=== PATIENT | female | born 1965 | race Two or more races ===

== ENCOUNTER 2024-09-14 04:58 | Emergency (ER) | payer MEDICAID ==
[~2024-09-14] VITALS: Ht 152.4 cm; Wt 72.6 kg
[2024-09-14 06:43] VITALS: BP 174/88; PULSE 86; RESP 18; TEMP 98.3; O2SAT 96
[2024-09-14] MEDS ORDERED: HYDROcodone-ACET 7.5/325MG TAB PO ONE (06:45)
--- NOTE | 2024-09-14 06:48 | ED.PDOC ---
Back pain HPI HPI Comments This is a pleasant 59-year-old female with no pertinent MHx that presents with a chief complaint of atraumatic nonradiating lower back pain x5 days. Pain is located to the bilateral paraspinal lumbosacral region. Denies any prior onset leading to the pain. Admits she was doing some gardening work several days beforehand but nothing strenuous. States the pain is persistent throughout the day but worsens when lying on her left or right side. Take Excedrin with some improvement Denies history of chronic steroid use or history of osteoporosis Denies any history of cancer Denies fevers chills night sweats nausea vomiting unintentional weight loss Denies IV drug use history of HIV/TB Denies abdominal "tearing" pain Denies syncope Denies urinary incontinence or urinary changes Denies numbness tingling of the groin or inner thigh Denies previous back procedure or surgery Chief Complaint: Back Pain Time Seen by MD: 06:28 Primary Care Provider: DAWOOD Grace Notes: Nurses Notes, Medications, Allergies Allergies: Coded Allergies: Acetaminophen (Verified Allergy, Unknown, 01/16/15) Codeine (Verified Allergy, Unknown, 01/16/15) Home Meds Active Scripts Cyclobenzaprine Hcl (Cyclobenzaprine Hcl) 10 Mg Tab, 10 MG PO QHSP PRN for 10 Days, #10 TAB 0 Refills Prov:NADEGE MAK NP 09/14/24 Ibuprofen Micronized (Ibuprofen) 800 Mg Tab, 800 MG PO TIDWMEALS for 10 Days, #30 TAB 0 Refills Prov:NADEGE MAK NP 09/14/24 Methylprednisolone (Medrol Dosepak) 4 Mg Filiberto, 4 MG PO UD, #21 TAB 0 Refills UAD Prov:NADEGE MAK NP 09/14/24 Information Source: Patient Mode of Arrival: Ambulatory Past Medical History PAST MEDICAL HISTORY: Denies Surgical History: , Tubal Ligation 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 PUBLIC EVENTS 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 RENTAL MANAGER History Family History Family History: No family hx of Heart ifeoma, No family hx of HTN Social History Smoker: Non-Smoker Alcohol: Denies ETOH Use Drugs: Denies Drug Use Lives In: Home All Other Systems: Reviewed and Negative (Per HPI) Physical Exam General Appearance: No Apparent Distress, Normal HEENT: Head (Normocephalic atraumatic), Normal ENT Inspection, Pharynx Normal, TMs Normal Neck: Full Range of Motion, Non-Tender, Normal, Normal Inspection Respiratory: Chest Non-Tender, Lungs Clear, No Accessory Muscle Use, No Respiratory Distress, Normal Breath Sounds Cardiovascular: No Edema, No JVD, No Murmur, No Gallop, Normal Peripheral Pulses, Regular Rate/Rhythm Breast Exam: Deferred Gastrointestinal: No Organomegaly, Non Tender, No Pulsatile Mass, Normal Bowel Sounds, Soft Genitalia: Deferred Pelvic: Deferred Rectal: Deferred Extremities: No calf tenderness, Normal capillary refill, Normal inspection, Normal range of motion, Non-tender, No pedal edema Musculoskeletal : Apperance: Normal Neurologic: Alert, health benefits specialist II-XII nml as Tested, No Motor Deficits, Normal Affect, Normal Mood, No Sensory Deficits Cerebellar Function: Normal Reflexes: Normal Skin: Dry, Normal Color, Warm Lymphatic: No Adenopathy Was a procedure done? Was a procedure done?: No Images 1 - No gross abnormality on inspection no midline tenderness. Bilateral lumbosacral tenderness to palpation. Full forward flexion-extension and lateral movements. Back Pain Differential Dx Differential Diagnosis: Musculoskeletal Pain, Strain, Other (UTI) X-Ray, Labs, Meds, VS Vital Signs Date Time Temp Pulse Resp B/P (MAP) Pulse Ox O2 Delivery O2 Flow Rate FiO2 09/14/24 06:43 86 18 96 Room Air 09/14/24 06:43 98.3 86 18 174/88 (116) 96 98.3 09/14/24 05:17 98.3 81 18 183/95 (124) 97 Lab Test 09/14/24 06:51 Range/Units Urine Color Colorless Yellow Urine Clarity Clear Clear Urine pH 5.5 5.0-9.0 Urine Specific [place] 1.009 1.001-1.035 Urine Protein Negative Negative Urine Ketones Negative Negative Urine Blood 1+ H Negative /uL Urine Nitrite Negative Negative Urine Bilirubin Negative Negative Urine Urobilinogen Normal Negative mg/dL Urine Leukocyte Esterase Negative Negative /uL Urine RBC 4 0 - 4 /hpf Urine WBC <1 0 - 5 /hpf Urine Squamous Epithelial Cells Few <5 /hpf Urine Bacteria None seen None Seen /hpf Urine Glucose Normal Normal mg/dL Current Medications Medications (Trade) Dose Ordered Sig/Giuseppe Route Start Time Stop Time Status Last Admin Ketorolac Tromethamine (Toradol Injection) 30 mg ONCE ONCE IM 09/14/24 08:00 12/8/24 08:01 DC 09/14/24 07:58 X-Ray, Labs, Meds, VS Comment History and physical exam consistent with muscular injury. Supportive care advised (rest, ice, heat, NSAIDs, stretching exercises) Massage muscles with cold pack or ice for 20 minutes 4 times per day. Usually most useful if there is swelling during the first 48 hours Heating pad on the most painful area for 20 minutes to relieve muscle spasm Sleep and the most comfortable sleeping position (usually on the side with knees bent) Light stretching, no strenuous activity, avoid frequent bending, avoid carrying heavy objects Discussed possible benefits of yoga and acupuncture Return precautions discussed including Inability to walk/bear weight Paresthesia/weakness/leg pain Fecal/urinary incontinence Any worsening symptoms On reevaluation, patient had symptomatic improvement. Patient is stable for discharge at this time. External notes reviewed. Test results and diagnostic imaging interpreted. All diagnostic findings, discharge care, education and instructions provided Follow-up with PCP in 2 to 3 days Patient verbalized understanding and agreed to treatment plan Vital signs stable, afebrile, no acute distress noted Patient ambulatory with strong steady gait Advised to return precautions for any new or worsening symptoms, return to ER immediately for re-evaluation Patient is aware that the purpose of this visit was for an acute medical emergency requiring emergent stabilization. Chronic conditions, including malignancies have not been ruled out. Patient is instructed to follow up with PCP as directed and discharge instructions for continued care and workup. If unable to arrange follow-up, patient is to return to the emergency department for reassessment. Patient (parent or legal guardian if applicable) was given verbal and written discharge instructions and acknowledges understanding. Time of 1ST Reevaluation: 06:45 Reevaluation 1ST: Improved Patient Education/Counseling: Diagnosis, Treatment Family Education/Counseling: Diagnosis, Treatment Departure 1 Departure Time of Disposition: 08:12 Impression: Primary Impression: Strain of lumbar paraspinal muscle Qualified Codes: S39.012A - Strain of muscle, fascia and tendon of lower back, initial encounter Disposition: HOME / SELF CARE / HOMELESS Condition: Stable e-Prescriptions Cyclobenzaprine Hcl (Cyclobenzaprine Hcl) 10 Mg Tab 10 MG PO QHSP PRN for 10 Days, #10 TAB 0 Refills Prov: NADEGE MAK NP 09/14/24 Ibuprofen Micronized (Ibuprofen) 800 Mg Tab 800 MG PO TIDWMEALS for 10 Days, #30 TAB 0 Refills Prov: NADEGE MAK BELL NECK HAMMERER 09/14/24 Methylprednisolone (Medrol Dosepak) 4 Mg Filiberto 4 MG PO UD, #21 TAB 0 Refills UAD Prov: NADEGE MAK BELL NECK HAMMERER 09/14/24 Discharged With: Relative Critical Care Note Critical Care Time?: No Stability Stability form required: No Heart Score Heart Score: Heart Score Response (Comments) Value History N/A 0 EKG N/A 0 Age N/A 0 Risk Factors N/A 0 Troponin N/A 0 Total 0 NADEGE MAK BELL NECK HAMMERER Sep 14, 2024 06:47
[2024-09-14 07:24] LABS: Urine Bacteria None Seen /hpf (None Seen)
[2024-09-14 07:40] LABS: Urine Blood 1+ /uL (Negative); Urine Clarity Clear (Clear); Urine Color Colorless (Yellow); Urine Protein, UAD Negative (Negative); Urine Specific Gravity 1.009 (1.001-1.035); Urine Urobilinogen Normal (Negative); Urine WBC <1 /hpf (0 - 5); Urine pH 5.5 (5.0-9.0)
[2024-09-14] MEDS: KETOROLAC TROMETH 30 MG/ML 1ML VIAL IM ONE (07:58)
[2024-09-14] MEDS ORDERED: METH4PAK PO (08:13)
[2024-09-14] MEDS ORDERED: CYCL-839 PO (08:13)
[2024-09-14] MEDS ORDERED: IBUP-1455 PO (08:13)
== END 2024-09-14 08:13 | disposition home or self-care (01) ==
LOC: ER 04:58
DX: S39.012A Strain of muscle, fascia and tendon of lower back, initial encounter (principal); Z88.5 Allergy status to narcotic agent; Z98.51 Tubal ligation status; X58.XXXA Exposure to other specified factors, initial encounter; Y93.89 Activity, other specified; Y92.89 Other specified places as the place of occurrence of the external cause; Y99.8 Other external cause status
CPT/HCPCS: 81001; 96372; 99283; J1885

== ENCOUNTER 2025-07-01 02:10 | Inpatient (IN) | payer MEDICAID ==
[~2025-07-01] VITALS: Ht 152.4 cm; Wt 75.5 kg
[2025-07-01] VITALS (9 sets, daily range): BP systolic 122–144; BP diastolic 69–77; PULSE 58–88; RESP 12–21; TEMP 98.3; O2SAT 95–99
[~2025-07-01 02:10] MED LIST: CYCL-839 PO; IBUP-1455 PO; METH4PAK PO
--- NOTE | 2025-07-01 02:22 | ECG ---
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
[2025-07-01 02:40] LABS: Hematocrit 43.4 % (36.0-46.0); Hemoglobin 14.5 g/dL (12.2-16.2); Mean Corpuscular Hemoglobin 29.7 pg (28.0-32.0); Mean Corpuscular Volume 89.1 fL (80.0-100.0); Nucleated Red Blood Cells % 0.2 %
--- NOTE | 2025-07-01 02:42 | ED.PDOC ---
HPI Comments 59-year-old female low prior cardiac history now complains of some anterior parasternal chest tightness for the last 1 day. Unprovoked. No known modifying factors. Chief Complaint: Chest Pain Time Seen by MD: 02:16 Primary Care Provider: DAWOOD Allergies: Coded Allergies: Codeine (Verified Allergy, Unknown, 01/16/15) Home Meds Active Scripts Cyclobenzaprine Hcl (Cyclobenzaprine Hcl) 10 Mg Tab, 10 MG PO QHSP PRN for 10 Days, #10 TAB 0 Refills Prov:NADEGE MAK [employer] 09/14/24 Ibuprofen Micronized (Ibuprofen) 800 Mg Tab, 800 MG PO TIDWMEALS for 10 Days, #30 TAB 0 Refills Prov:NADEGE MAK NP 09/14/24 Methylprednisolone (Medrol Dosepak) 4 Mg Filiberto, 4 MG PO UD, #21 TAB 0 Refills UAD Prov:NADEGE MAK [employer] 09/14/24 Information Source: Patient Mode of Arrival: Ambulatory Severity: Moderate Timing: Days Duration: Since onset Past Medical History PAST MEDICAL HISTORY: Denies Surgical History: , Tubal Ligation 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 TYPE CASTING MACHINE OPERATOR History Family History Family History: No family hx of Heart ifeoma, No family hx of HTN Social History Smoker: Non-Smoker Alcohol: Denies ETOH Use Drugs: Denies Drug Use Lives In: Home Cardiovascular: reports: chest pain All Other Systems: Reviewed and Negative Physical Exam General Appearance: Mild Distress, Moderate Distress, Other HEENT: Normal ENT Inspection, Pharynx Normal, TMs Normal Neck: Full Range of Motion, Non-Tender, Normal, Normal Inspection Respiratory: Chest Non-Tender, Lungs Clear, No Accessory Muscle Use, No Respiratory Distress, Normal Breath Sounds Cardiovascular: No Edema, No JVD, No Murmur, No Gallop, Normal Peripheral Pulses, Regular Rate/Rhythm Breast Exam: Deferred Gastrointestinal: No Organomegaly, Non Tender, No Pulsatile Mass, Normal Bowel Sounds, Soft Genitalia: Deferred Pelvic: Deferred Rectal: Deferred Extremities: No calf tenderness, Normal capillary refill, Normal inspection, Normal range of motion, Non-tender, No pedal edema Musculoskeletal : Apperance: Normal Neurologic: Alert, embossing toolsetter II-XII nml as Tested, No Motor Deficits, Normal Affect, Normal Mood, No Sensory Deficits Cerebellar Function: Normal Reflexes: Normal Skin: Dry, Normal Color, Warm Lymphatic: No Adenopathy EKG EKG : Comments Test Date: 2025-07-01 Test Time: 02:14:39 Pat Name: FARHAT MANCUSO Department: ED Room: Gender: F 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 Was a procedure done?: No CP Differential Dx Differential Diagnosis: A-fib, A-Flutter, Angina, HI, Pulmonary Embolus, Sinus Tachycardia, V-Fib, V-Tach, Other X-Ray, Labs, Meds, VS Vital Signs Date Time Temp Pulse Resp B/P (MAP) Pulse Ox O2 Delivery O2 Flow Rate FiO2 07/01/25 03:15 67 07/01/25 02:14 77 07/01/25 02:10 98.4 89 20 186/107 96 98.4 Lab Test 07/01/25 03:30 07/01/25 02:27 Range/Units Troponin I High Sensitivity Pending 7973 *H </=34 ng/L White Blood Count 9.6 4.4-10.8 10^3/uL Red Blood Count 4.87 4.0-5.20 10^6/uL Hemoglobin 14.5 12.2-16.2 g/dL Hematocrit 43.4 36.0-46.0 % Mean Corpuscular Volume 89.1 80.0-100.0 fL Mean Corpuscular Hemoglobin 29.7 28.0-32.0 pg Mean Corpuscular Hemoglobin Concent 33.4 32.0-36.0 g/dL Red Cell Distribution Width 14.9 H 11.8-14.3 % Platelet Count 237 140-450 10^3/uL Mean Platelet Volume 9.4 6.9-10.8 fL Neutrophils (%) (Auto) 59.2 37.0-80.0 % Lymphocytes (%) (Auto) 35.6 10.0-50.0 % Monocytes (%) (Auto) 4.5 0.0-12.0 % Eosinophils (%) (Auto) 0.2 0.0-7.0 % Basophils (%) (Auto) 0.5 0.0-2.0 % Neutrophils # (Auto) 5.7 1.6-8.6 10 ^3/uL Lymphocytes # (Auto) 3.4 0.4-5.4 10 ^3/uL Monocytes # (Auto) 0.4 0-1.3 10 ^3/uL Eosinophils # (Auto) 0 0-0.8 10 ^3/uL Basophils # (Auto) 0 0-0.2 10 ^3/uL Nucleated Red Blood Cells 0.2 % Sodium Level 140 136-145 mmol/L Potassium Level 3.7 3.5-5.1 mmol/L Chloride Level 103 98-107 mmol/L Carbon Dioxide Level 24 20-31 mmol/L Anion Gap 13 5-15 Blood Urea Nitrogen 8 L 9-23 mg/dL Creatinine 0.85 0.550-1.02 mg/dL Glomerular Filtration Rate Calc 79 >90 mL/min BUN/Creatinine Ratio 9.4 L 10.0-20.0 Serum Glucose 129 H 74-106 mg/dL Calcium Level 9.5 8.7-10.4 mg/dL Total Bilirubin 1.1 H 0.2-1.0 mg/dL Aspartate Amino Transferase (AST) 134 H 13-40 U/L Alanine Aminotransferase (ALT) 60 H 7-40 U/L Alkaline Phosphatase 112 46-116 U/L Total Protein 8.3 H 5.7-8.2 g/dL Albumin 4.9 H 3.2-4.8 g/dL Time of 1ST Reevaluation: 02:41 Reevaluation 1ST: Unchanged Patient Education/Counseling: Diagnosis, Treatment Family Education/Counseling: No Family Present SEPSIS Sepsis Screen Date sepsis recognized/suspect: Jul 01, 2025 Time Sepsis recognized/suspect: 209 Recent Procedure: No On Antibiotic Therapy: No Respiratory Rate >20: No Heart Rate >90: No Temp<36 C (96.8 F) or >38.3 C: No SBP <90 or MAP <65 mmHG: No New Acute Mental Status Change: No Is the patient on CPAP, BIPAP,: No Physician Orders Troponin-I Hs (07/01/25 03:18) Troponin-I Hs (07/01/25 05:18) Chest Xray 1 View (07/01/25 02:18) Electrocardigram (07/01/25 05:20) Aspirin Tablet (07/01/25 03:45) Nitroglycerin Sublingual (Ntrostat Subli (07/01/25 03:45) Morphine Sulfate Injection (07/01/25 03:45) Ondansetron Hcl (Zofran) (07/01/25 03:45) Vital Signs Date Time Temp Pulse Resp B/P (MAP) Pulse Ox O2 Delivery O2 Flow Rate FiO2 07/01/25 03:15 67 07/01/25 02:14 77 07/01/25 02:10 98.4 89 20 186/107 96 98.4 Laboratory Tests Test 07/01/25 02:27 White Blood Count 9.6 10^3/uL (4.4-10.8) Departure 1 Departure Time of Disposition: 03:35 Impression: Primary Impression: Chest tightness Additional Impression: Acute coronary syndrome Disposition: ADMITTED INPATIENT Admit to: Tele Condition: Guarded Discharged With: Self Comments 59-year-old female with some chest pain. Lab results reviewed. Troponin is quite elevated 7000. Normal BUN creatinine. Patient was given aspirin and nitroglycerin and morphine. Patient appears to have acute coronary syndrome. Patient will need to be admitted for supportive care and further workup. Critical Care Note Critical Care Time?: Yes (35 min-critical care time only) Critical care comment: Total critical care time: Approximately 36 minutes Due to a high probability of clinically significant, life threatening deterioration, the patient required my highest level of preparedness to intervene emergently and I personally spent this critical care time directly and personally managing the patient. This critical care time included obtaining a history; examining the patient; pulse oximetry; ordering and review of studies; arranging urgent treatment with development of a management plan; evaluation of patient's response to treatment; frequent reassessment; and, discussions with other providers. This critical care time was performed to assess and manage the high probability of imminent, life-threatening deterioration that could result in multi-organ failure. It was exclusive of separately billable procedures and treating other patients. Stability Stability form required: No Heart Score Heart Score: Heart Score Response (Comments) Value History Slightly Suspicious 0 EKG Repolarization Disturb 1 Age 45-64 1 Risk Factors 1 or 2 risk factors 1 Troponin >3 x's Normal limit 2 Total 5 NOWLIS,AMY A MD Jul 01, 2025 02:42
[2025-07-01 02:58] LABS: Alkaline Phosphatase 112 U/L (46-116); Anion Gap 13 (5-15); BUN/Creatinine Ratio 9.4 (10.0-20.0); Bilirubin, Total 1.1 mg/dL (0.2-1.0); Calcium 9.5 mg/dL (8.7-10.4); Carbon Dioxide 24 mmol/L (20-31); Chloride 103 mmol/L (98-107); Potassium 3.7 mmol/L (3.5-5.1); Sodium 140 mmol/L (136-145)
[2025-07-01 03:02] LABS: Alanine Aminotransferase 60 U/L (7-40); Albumin 4.9 g/dL (3.2-4.8); Blood Urea Nitrogen 8 mg/dL (9-23); Glucose 129 mg/dL (74-106); Total Protein 8.3 g/dL (5.7-8.2)
--- NOTE | 2025-07-01 03:11 | DVH ---
CHEST RADIOGRAPH Indication: chest pain Technique: Single frontal view of the chest was obtained COMPARISON: None FINDINGS: Lines and Tubes: None Lungs: Clear Pleura: No effusion. No pneumothorax. Cardiomediastinal contours: Unremarkable Bones: Unremarkable IMPRESSION: 1. No acute disease.
--- NOTE | 2025-07-01 03:16 | ECG ---
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
[2025-07-01] MEDS: NITROGLYCERIN 0.4 MG SL TAB SL ONE (03:47)
[2025-07-01] MEDS: MORPHINE SULFATE 4 MG/ML SYR/VIAL IV ONE (03:49)
[2025-07-01] MEDS: ONDANSETRON HCL 4 MG/2 ML VIAL IV ONE (03:49)
[2025-07-01] MEDS: HYDROmorphone HCL 2 MG/ML VL/or syr IV ONE (04:15)
--- NOTE | 2025-07-01 04:20 | ECG ---
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
[2025-07-01] MEDS: PANTOPRAZOLE 40 MG/10 ML VIAL INJ IV ONE (04:34)
[2025-07-01] MEDS: ATORVASTATIN 20 MG TAB PO ONE (04:34)
[2025-07-01 04:43] LABS: INR 0.97 (0.9-1.15); Partial Thromboplastin Time 26.8 SEC (24.5-34.5); Prothrombin Time 10.3 sec (9.3-11.8)
[2025-07-01 04:44] LABS: Triglycerides 102.0 mg/dL (< 150)
[2025-07-01 04:45] LABS: Magnesium 1.9 mg/dL (1.6-2.6)
[2025-07-01 04:46] LABS: HDL Cholesterol 67.0 mg/dL (40-59)
[2025-07-01 04:48] LABS: Cholesterol 256.0 mg/dL (< 200)
[2025-07-01] MEDS ORDERED: NITROGLYCERIN 0.4 MG SL TAB SL PRN (05:00)
[2025-07-01] MEDS: HEPARIN SODIUM (PORCINE) 5000 UNITS/ML 1ML VIAL IV ONE (05:00)
[2025-07-01] MEDS: HEPARIN DRIP/D5W 100UNITS/ML 250 ML IV SCH (05:03)
--- NOTE | 2025-07-01 05:12 | DVHHPRES ---
History of Present Illness Resident Creating Document: NATALY RÍOS RESIDENT History of Present Illness Ms. Lynn is a 59-year-old female with prior medical history of hypertension and herniated disc, who presents today the ED with chief complaint of chest pain. The patient states she had sudden onset of chest pain on Sunday described as pressure-like /tightness, in retrosternal region, radiating to her back and down her left arm, intensity 10/10, associated with nausea, 1 emetic episode, diaphoresis, shortness of breath on exertion, and tinnitus. Additionally states that her blood pressure has been elevated, with recent readings all with SBP > 170 mmHg. The pain persisted and progressively got worse prompting her to seek medical attention in the emergency department. She denies palpitations, fever, sick contacts, body aches, loss of consciousness, and weakness. On evaluation in the ED, the patient's blood pressure was 186/107. Twelve lead EKG shows sinus rhythm with minimal ST depressions in anterolateral leads. Initial labs are significant for transaminitis, hyperlipidemia, and elevated troponin ([id number]). Chest x-ray shows no acute disease. The patient was given nitroglycerin, aspirin, IV pain medication, and was started on a heparin drip, reducing her chest pain intensity with medical treatment form 07/17 to 3-01/15. She was admitted for further workup and monitoring. Cardiovascular: HTN Musculoskeletal: Chronic low back pain Past Surgical History: (Four), Tubal Ligation Family History: Hypertension, Other (CHF) Smoke: No ALCOHOL: none Drugs: None Lives: with Family Domestic Violence: Neg Review of Systems Review of Systems Constitutional: Denies weight loss, fever and chills. HEENT: Denies changes in vision and hearing. Respiratory: Denies shortness of breath and cough Cardiovascular: Refers chest pain, Denies palpitations GI: Denies abdominal distention, abdominal pain, diarrhea : Denies dysuria and urinary frequency. Musculoskeletal: Refers localized back pain Skin: Denies rash and pruritus. Neurological: denies dizziness headache vision or hearing problems Allergies: Coded Allergies: Morphine (Verified Allergy, Intermediate, 07/01/25) Codeine (Verified Allergy, Unknown, 01/16/15) Medications Current Medications Medications Dose Ordered Sig/Giuseppe Route Start Time Stop Time Status Last Admin Dose Admin Aspirin 81 mg DAILY PO 07/01/25 10:00 Atorvastatin Calcium 80 mg HS PO 07/01/25 22:00 Heparin Sodium/ Dextrose 250 ml @ 9 mls/hr Q24H IV 07/01/25 05:00 07/01/25 05:03 9 MLS/HR Pantoprazole Sodium 40 mg DAILY IV 07/02/25 10:00 Acetaminophen 325 mg Q4HP PRN PO 07/01/25 05:00 Ondansetron HCl 4 mg Q4HP PRN IV 07/01/25 05:00 Nitroglycerin 0.4 mg Q5MINP PRN SL 07/01/25 05:00 Exam Vital Signs Vital Signs Date Time Temp Pulse Resp B/P (MAP) Pulse Ox O2 Delivery O2 Flow Rate FiO2 07/01/25 04:47 110/72 07/01/25 04:45 80 20 07/01/25 03:35 98.1 97 98.1 07/01/25 03:35 Nasal Cannula* 2 28 Exam General: The patient alert and oriented in person place and time. Patient following commands HEENT: Normocephalic, atraumatic, normal reactive pupils, EOM intact, pink conjunctiva, pink moist mucous membrane Respiratory/pulmonary: Bilateral chest expansion, pain on palpation of anterior chest wall, pain on palpation of right scapular region, clear lungs bilaterally, vesicular murmurs present in almost all lung blackman, no associated crackles or wheezes. Cardiovascular: Normal RRR, normal S1 and S2, no murmurs Abdomen: Abdomen nondistended, normal bowel sounds, soft, there is no pain to palpation in any of the abdominal quadrants, no palpable masses. Extremities: No deformities, there is no peripheral edema present at the lower extremities, normal pulses Skin: No rashes or pruritus, there is no sacral edema present at this time. Neurological: Intact cranial nerves with no focal neurologic deficits Labs/Xrays Labs Test 07/01/25 03:30 07/01/25 02:27 Range/Units Troponin I High Sensitivity 8026 *H </=34 ng/L White Blood Count 9.6 4.4-10.8 10^3/uL Red Blood Count 4.87 4.0-5.20 10^6/uL Hemoglobin 14.5 12.2-16.2 g/dL Hematocrit 43.4 36.0-46.0 % Mean Corpuscular Volume 89.1 80.0-100.0 fL Mean Corpuscular Hemoglobin 29.7 28.0-32.0 pg Mean Corpuscular Hemoglobin Concent 33.4 32.0-36.0 g/dL Red Cell Distribution Width 14.9 H 11.8-14.3 % Platelet Count 237 140-450 10^3/uL Mean Platelet Volume 9.4 6.9-10.8 fL Neutrophils (%) (Auto) 59.2 37.0-80.0 % Lymphocytes (%) (Auto) 35.6 10.0-50.0 % Monocytes (%) (Auto) 4.5 0.0-12.0 % Eosinophils (%) (Auto) 0.2 0.0-7.0 % Basophils (%) (Auto) 0.5 0.0-2.0 % Neutrophils # (Auto) 5.7 1.6-8.6 10 ^3/uL Lymphocytes # (Auto) 3.4 0.4-5.4 10 ^3/uL Monocytes # (Auto) 0.4 0-1.3 10 ^3/uL Eosinophils # (Auto) 0 0-0.8 10 ^3/uL Basophils # (Auto) 0 0-0.2 10 ^3/uL Nucleated Red Blood Cells 0.2 % Prothrombin Time 10.3 9.3-11.8 sec Prothrombin Time INR 0.97 0.9-1.15 Activated Partial Thromboplast Time 26.8 24.5-34.5 SEC Sodium Level 140 136-145 mmol/L Potassium Level 3.7 3.5-5.1 mmol/L Chloride Level 103 98-107 mmol/L Carbon Dioxide Level 24 20-31 mmol/L Anion Gap 13 5-15 Blood Urea Nitrogen 8 L 9-23 mg/dL Creatinine 0.85 0.550-1.02 mg/dL Glomerular Filtration Rate Calc 79 >90 mL/min BUN/Creatinine Ratio 9.4 L 10.0-20.0 Serum Glucose 129 H 74-106 mg/dL Hemoglobin A1c 6.0 H <5.7 % A1C Calcium Level 9.5 8.7-10.4 mg/dL Phosphorus Level 2.9 2.4-5.1 mg/dL Magnesium Level 1.9 1.6-2.6 mg/dL Total Bilirubin 1.1 H 0.2-1.0 mg/dL Aspartate Amino Transferase (AST) 134 H 13-40 U/L Alanine Aminotransferase (ALT) 60 H 7-40 U/L Alkaline Phosphatase 112 46-116 U/L Total Protein 8.3 H 5.7-8.2 g/dL Albumin 4.9 H 3.2-4.8 g/dL Triglycerides Level 102 < 150 mg/dL Cholesterol Level 256 H < 200 mg/dL LDL Cholesterol 172 H < 100 mg/dL HDL Cholesterol 67 H 40-59 mg/dL Vitamin B12 Level 378 211-911 pg/mL Vitamin D 25-Hydroxy 21.5 L 30.0-100 ng/mL Thyroid Stimulating Hormone (TSH) 1.59 0.55-4.78 uIU/mL SEPSIS Sepsis Screen Date sepsis recognized/suspect: Jul 01, 2025 Time Sepsis recognized/suspect: 337 Recent Procedure: No On Antibiotic Therapy: No Respiratory Rate >20: No Heart Rate >90: No Temp<36 C (96.8 F) or >38.3 C: No SBP <90 or MAP <65 mmHG: No New Acute Mental Status Change: No Is the patient on CPAP, BIPAP,: No Physician Orders Troponin-I Hs (07/01/25 05:18) Chest Xray 1 View (07/01/25 02:18) Aspirin Tablet (07/01/25 10:00) Atorvastatin (Lipitor) (07/01/25 22:00) Platelet Monitoring (07/01/25 04:14) Heparin Per Standardized Proce (07/01/25 04:14) Discontinue All Im Injections (07/01/25 04:14) Complete Blood Count (07/01/25 04:14) Heparin Drip/D5w 100units/Ml (07/01/25 05:00) Stat Ekg For Chest Pain (07/01/25 04:14) Urinalysis (07/01/25 04:14) Lactic Acid W/ Reflex Order (07/01/25 04:14) Drug Screen (07/01/25 04:14) Acute Hepatitis Panel (07/01/25 04:18) * Cardiology Consult (07/01/25 04:18) Echo 2d Mode Cardiac Dop (07/01/25 04:25) Pantoprazole (Protonix) (07/02/25 10:00) Admit (07/01/25 04:52) Allergies (07/01/25 04:52) Code Status (07/01/25 04:52) Acetaminophen Tablet (Tylenol Tablet) (07/01/25 05:00) Ondansetron Hcl (Zofran) (07/01/25 05:00) Npo (Nothing By Mouth) Diet (07/01/25 Breakfast) Condition: Stable (07/01/25 04:52) Nitroglycerin Sublingual (Ntrostat Subli (07/01/25 05:00) Notify Md Of Changes From Base (07/01/25 04:52) Die Finisher For 24 Hours (07/01/25 04:52) Emergency Dysrhythmia Protocol (07/01/25 04:52) Rhythm Strips Once Every Shift (07/01/25 04:52) Complete Blood Count (07/01/25 08:00) Comprehensive Metabolic Panel (07/01/25 08:00) Troponin-I Hs (07/01/25 08:00) PTPTT (07/01/25 11:00) Heparin Per Pharmacy Protocol (07/01/25 04:59) Vital Signs Date Time Temp Pulse Resp B/P (MAP) Pulse Ox O2 Delivery O2 Flow Rate FiO2 07/01/25 04:47 110/72 07/01/25 04:45 80 20 110/72 07/01/25 04:16 64 07/01/25 04:15 82 18 110/72 07/01/25 04:06 106/67 (80) 07/01/25 03:49 88 20 188/90 07/01/25 03:47 188/93 07/01/25 03:35 98.1 88 20 188/95 (126) 97 98.1 07/01/25 03:35 88 20 97 Nasal Cannula* 2 28 07/01/25 03:15 67 07/01/25 02:14 77 07/01/25 02:10 98.4 89 20 186/107 96 98.4 Laboratory Tests Test 07/01/25 02:27 White Blood Count 9.6 10^3/uL (4.4-10.8) Medications Medications Dose Ordered Sig/Giuseppe Route Start Time Stop Time Status Last Admin Dose Admin Aspirin 162 mg ONCE ONCE PO 07/01/25 03:45 07/01/25 03:46 DC 07/01/25 03:47 162 MG Aspirin 162 mg ONCE ONCE PO 07/01/25 04:15 07/01/25 04:20 DC 07/01/25 04:33 162 MG Atorvastatin Calcium 80 mg ONCE ONCE PO 07/01/25 04:15 07/01/25 04:20 DC 07/01/25 04:34 80 MG Heparin Sodium (Porcine) 4,000 units ONCE ONCE IV 07/01/25 05:00 07/01/25 05:01 DC 07/01/25 05:00 4,000 UNITS Heparin Sodium/ Dextrose 250 ml @ 9 mls/hr Q24H IV 07/01/25 05:00 07/01/25 05:03 9 MLS/HR Hydromorphone HCl 1 mg ONCE ONCE IV 07/01/25 04:15 07/01/25 04:16 DC 07/01/25 04:15 1 MG Nitroglycerin 0.4 mg ONCE ONCE SL 07/01/25 03:45 07/01/25 03:46 DC 07/01/25 03:47 0.4 MG Ondansetron HCl 4 mg ONCE ONCE IV 07/01/25 03:45 07/01/25 03:46 DC 07/01/25 03:49 4 MG Pantoprazole Sodium 40 mg ONCE ONCE IV 07/01/25 04:30 07/01/25 04:31 DC 07/01/25 04:34 40 MG Assessment/Plan Assessment/Plan Assessment and Plan: Acute chest pain, likely due to NSTEMI type 1 - EKG: Sinus rhythm with minimal ST depressions in anterolateral leads - Troponins: 7973 -> 8026 - Aspirin 325 mg p.o. once - aspirin 81 mg p.o. daily - Nitroglycerin 0.4 mg SL Q 5 minutes p.r.n. - Dilaudid mg IV once - Acetaminophen 325 mg p.o. q.4 hours PRN - Heparin drip - Atorvastatin 80 mg p.o. HS - Beta-blockers are being held due to borderline blood pressure readings - Zofran 4 mg IV q.4 hours PRN - Cardiology has been consulted - Echocardiogram has been ordered - Repeat troponin have been ordered - The patient is NPO in case she is taken for angiogram Hypertensive crisis - Blood pressure decreased with administration of nitroglycerin, but pain is persistent with normal BP values - Monitor blood pressure Newly diagnosed Prediabetes, HbA1c 6.0% -I have counseled the patient on the importance of maintaining a balanced diet low in carbohydrates, weight loss, and regular moderate exercise with intolerance Newly diagnosed Hyperlipidemia - Atorvastatin 80 mg HS Transaminitis - Follow up CMP ordered for evaluation of hepatic function - Hepatitis panel has been ordered - Continue Atorvastatin, consider discontinuing if LFTs increase 5 fold Obesity, BMI 30.8 kg/m2 -I have counseled the patient on the importance of maintaining a balanced diet low in carbohydrates, weight loss, and regular moderate exercise with intolerance Vitamin D deficiency - Replenished Diet: NPO GI prophylaxis: Pantoprazole 40 mg IV daily DVT prophylaxis: Not indicated, patient is on heparin drip Case discussed with Dr. Trejo Goals of care discussed with the patient for 25 minutes. FULL CODE. Plan discussed with: Patient, Other (Nurses) My Orders Orders - NATALY RÍOS Procedure Category Date Status Time Admit ADMIT 07/01/25 Transmitted 04:52 Allergies [facility] 07/01/25 In Process 04:52 Code Status CODE 07/01/25 Transmitted 04:52 Acetaminophen Tablet PHA 07/01/25 In Process (Tylenol Tablet) 05:00 Ondansetron Hcl PHA 07/01/25 In Process (Zofran) 05:00 Npo (Nothing By DIET 07/01/25 Transmitted Mouth) Diet Breakfast Condition: Stable [facility] 07/01/25 In Process 04:52 Nitroglycerin [facility] 07/01/25 In Process Sublingual (Ntrostat 05:00 Notify Of Changes [facility] 07/01/25 In Process From Base 04:52 Die Finisher For [facility] 07/01/25 In Process 24 Hours 04:52 Emergency Dysrhythmia [facility] 07/01/25 In Process Protocol 04:52 Rhythm Strips Once [facility] 07/01/25 In Process Every Shift 04:52 Complete Blood Count LAB 07/01/25 Logged 08:00 Comprehensive LAB 07/01/25 Logged Metabolic Panel 08:00 Troponin-I Hs LAB 07/01/25 Logged 08:00 Date of Service: Jul 01, 2025 Billing Provider: ANITA TREJO MD Common Visit Codes: [id number] INP/OBS CARE (HIGH) Secondary Visit Codes: [id number] CARE PLAN 30 MINUTES NATALY RÍOS Jul 01, 2025 05:11 AKIKO LAUGHLIN Jul 01, 2025 05:30
[2025-07-01] MEDS: ONDANSETRON HCL 4 MG/2 ML VIAL IV PRN (05:14)
[2025-07-01 05:38] LABS: Hematocrit 41.2 % (36.0-46.0); Hemoglobin 13.7 g/dL (12.2-16.2); Mean Corpuscular Hemoglobin 29.7 pg (28.0-32.0); Mean Corpuscular Volume 89.1 fL (80.0-100.0); Nucleated Red Blood Cells % 0.2 %
[2025-07-01 06:09] LABS: Lactic Acid w/Reflex 2.6 mmol/L (0.4-2.0)
[2025-07-01] MEDS: SODIUM CHLORIDE 0.9% 500 ML IV ONE (06:53)
[2025-07-01 07:23] LABS: Albumin 4.7 g/dL (3.2-4.8); Alkaline Phosphatase 107 U/L (46-116); Anion Gap 14 (5-15); BUN/Creatinine Ratio 11.6 (10.0-20.0); Bilirubin, Total 1.0 mg/dL (0.2-1.0); Blood Urea Nitrogen 10 mg/dL (9-23); Calcium 9.5 mg/dL (8.7-10.4); Carbon Dioxide 20 mmol/L (20-31); Chloride 104 mmol/L (98-107); Sodium 138 mmol/L (136-145); Total Protein 8.0 g/dL (5.7-8.2)
[2025-07-01 07:24] LABS: Alanine Aminotransferase 59 U/L (7-40); Glucose 186 mg/dL (74-106); Potassium 3.2 mmol/L (3.5-5.1)
[2025-07-01] MEDS: MAGNESIUM SULFATE 1GM/100ML 100 ML IV ONE (09:33)
[2025-07-01 09:37] LABS: Urine Protein, UAD 1+ (Negative)
[2025-07-01 09:41] LABS: Opiate Scree,Urine Neg (NEGATIVE)
[2025-07-01 09:44] LABS: Amphetamine Screen, Urine Neg (NEGATIVE); Barbiturate Scree,Urine Neg (NEGATIVE); Benzodiazephine Screen, Urine Neg (NEGATIVE); Cannabinoid Screen, Urine Neg (NEGATIVE); Cocaine Screen, Urine Neg (NEGATIVE); Phencyclidine Screen, Urine Neg (NEGATIVE)
--- NOTE | 2025-07-01 09:51 | DVHINCON2 ---
Date Seen: Jul 01, 2025 Referring Physician MD [place] resident Reason for Consultation NSTEMI type 1 History of Present Illness This is a 59-year-old female patient who presents to the emergency room with chief complaint of chest pain. The patient reports that the chest pain began three days before emergency room arrival. She describes it as unprovoked, intermittent, tight in nature, retrosternal with radiation down her left arm and mid back. Associated symptoms include lightheadedness. She also reports one emetic episode prior to emergency room arrival. She denies any alleviating or aggravating factors. Initial twelve lead electrocardiogram done in the em ergency room reveals normal sinus rhythm with nonspecific ST segment changes to lateral leads. Initial troponin level of 7973ng/L with up trend and current peak level at 9666ng/L. While in the emergency room, the patient was loaded on IV heparin and given a loading dose of aspirin as well as 0.4 mg nitroglycerin sublingual. The patient reports a relief of symptoms after these medications were given. Significant past medical history includes hypertension and degenerative disc disease. The patient came to the emergency room with blood pressures reaching as high as 186/107. She admits that she ran out of her antihypertensives approximately four months ago and has been unable to see her primary care physician to get refills. She mentioned significant cardiac history within her family including her brother with coronary artery disease. Past Medical History Past medical history reviewed. No other significant than mentioned above. Past Surgical History x4 Bilateral tubal ligation Family History Family history reviewed. Social History Denies the use of tobacco, alcohol or illicit drugs. Allergies: Coded Allergies: Morphine (Verified Allergy, Intermediate, 07/01/25) Codeine (Verified Allergy, Unknown, 01/16/15) Home Meds Active Scripts Cyclobenzaprine Hcl (Cyclobenzaprine Hcl) 10 Mg Tab, 10 MG PO QHSP PRN for 10 Days, #10 TAB 0 Refills Prov:[facility] 09/14/24 Ibuprofen Micronized (Ibuprofen) 800 Mg Tab, 800 MG PO TIDWMEALS for 10 Days, #30 TAB 0 Refills Prov:NADEGE MAK NP 09/14/24 Methylprednisolone (Medrol Dosepak) 4 Mg Filiberto, 4 MG PO UD, #21 TAB 0 Refills [facility] Prov:NADEGE MAK NP 09/14/24 Home Meds Home medications reviewed. Current Medications Current Medications Medications (Trade) Dose Ordered Sig/Giuseppe Route PRN Reason Start Time Stop Time Status Last Admin Aspirin 81 mg DAILY PO 07/01/25 10:00 Atorvastatin Calcium (Lipitor) 80 mg HS PO 07/01/25 22:00 Heparin Sodium/ Dextrose 250 ml @ 9 mls/hr Q24H IV 07/01/25 05:00 07/01/25 05:03 Pantoprazole Sodium (Protonix) 40 mg DAILY IV 07/02/25 10:00 Acetaminophen (Tylenol Tablet) 325 mg Q4HP PRN PO MILD PAIN (1-3 PAIN SCALE) 07/01/25 05:00 Ondansetron HCl (Zofran) 4 mg Q4HP PRN IV NAUSEA / VOMITING 07/01/25 05:00 07/01/25 05:14 Nitroglycerin (Ntrostat Sublingual) 0.4 mg Q5MINP PRN SL FOR CHEST PAIN 07/01/25 05:00 Ergocalciferol (Vitamin D 50,000 Unit) 50,000 unit Q7D PO 07/01/25 10:00 Potassium Chloride 100 ml @ 50 mls/hr Q2H IV 07/01/25 08:15 07/01/25 12:14 Review of Systems Constitutional: No symptom reported Ears, Nose, & Throat: No symptom reported Eyes: No symptom reported Neurological: No symptoms reported Pulmonary/Respiratory: No symptoms reported Cardiovascular: Chest pain Gastrointestinal: No symptom reported Genitourinary: No symptom reported Musculoskeletal: No symptom reported Skin: No symptom reported Psychiatric: No symptom reported Endocrine: No symptom reported Hematologic/Lymphatic: No symptom reported Vital Signs Vital Signs Date Time Temp Pulse Resp B/P (MAP) Pulse Ox O2 Delivery O2 Flow Rate FiO2 07/01/25 09:16 58 07/01/25 08:00 12 99 Nasal Cannula* 2 28 07/01/25 08:00 97.6 143/75 (97) 97.6 Physical Exam General Appearance: Cooperative. Well-developed. Well-nourished. No acute distress. Pulmonary/Respiratory: Clear, bilateral breaths sounds. Cardiovascular/Chest: Regular rate and rhythm. Peripheral Pulses: 2+ Radial (R). 2+ Radial (L). 2+ Pedal (R). 2+ Pedal (L) Abdominal Exam: Normal bowel sounds. Ankle Exam: Negative ankle edema Lower extremities: Negative lower extremity edema Neuro/Mental Status: A/OX4, coherent. Thoughts/Psych: Normal thought pattern. Appropriate mood and affect. Good judgment and insight. Appearance: No acute distress. Skin Exam: Normal inspection. Normal color. Warm and dry. Labs/Diagnostic Data Labs Test 07/01/25 09:06 07/01/25 08:13 07/01/25 05:26 07/01/25 02:27 Range/Units Lactic Acid Level 2.1 *H 0.4-2.0 mmol/L Troponin I High Sensitivity 9666 *H </=34 ng/L White Blood Count 12.8 #H 4.4-10.8 10^3/uL Red Blood Count 4.62 4.0-5.20 10^6/uL Hemoglobin 13.7 12.2-16.2 g/dL Hematocrit 41.2 36.0-46.0 % Mean Corpuscular Volume 89.1 80.0-100.0 fL Mean Corpuscular Hemoglobin 29.7 28.0-32.0 pg Mean Corpuscular Hemoglobin Concent 33.3 32.0-36.0 g/dL Red Cell Distribution Width 15.4 H 11.8-14.3 % Platelet Count 242 140-450 10^3/uL Mean Platelet Volume 9.6 6.9-10.8 fL Neutrophils (%) (Auto) 61.0 37.0-80.0 % Lymphocytes (%) (Auto) 34.0 10.0-50.0 % Monocytes (%) (Auto) 4.4 0.0-12.0 % Eosinophils (%) (Auto) 0.1 0.0-7.0 % Basophils (%) (Auto) 0.5 0.0-2.0 % Neutrophils # (Auto) 7.8 1.6-8.6 10 ^3/uL Lymphocytes # (Auto) 4.4 0.4-5.4 10 ^3/uL Monocytes # (Auto) 0.6 0-1.3 10 ^3/uL Eosinophils # (Auto) 0 0-0.8 10 ^3/uL Basophils # (Auto) 0.1 0-0.2 10 ^3/uL Nucleated Red Blood Cells 0.2 % Sodium Level 138 136-145 mmol/L Potassium Level 3.2 L 3.5-5.1 mmol/L Chloride Level 104 98-107 mmol/L Carbon Dioxide Level 20 20-31 mmol/L Anion Gap 14 5-15 Blood Urea Nitrogen 10 9-23 mg/dL Creatinine 0.86 0.550-1.02 mg/dL Glomerular Filtration Rate Calc 78 >90 mL/min BUN/Creatinine Ratio 11.6 10.0-20.0 Serum Glucose 186 H 74-106 mg/dL Calcium Level 9.5 8.7-10.4 mg/dL Total Bilirubin 1.0 0.2-1.0 mg/dL Aspartate Amino Transferase (AST) 150 H 13-40 U/L Alanine Aminotransferase (ALT) 59 H 7-40 U/L Alkaline Phosphatase 107 46-116 U/L Total Protein 8.0 5.7-8.2 g/dL Albumin 4.7 3.2-4.8 g/dL Plasma/Serum Blood Alcohol < 3.0 <10 mg/dL Prothrombin Time 10.3 9.3-11.8 sec Prothrombin Time INR 0.97 0.9-1.15 Activated Partial Thromboplast Time 26.8 24.5-34.5 SEC Hemoglobin A1c 6.0 H <5.7 % A1C Phosphorus Level 2.9 2.4-5.1 mg/dL Magnesium Level 1.9 1.6-2.6 mg/dL Triglycerides Level 102 < 150 mg/dL Cholesterol Level 256 H < 200 mg/dL LDL Cholesterol 172 H < 100 mg/dL HDL Cholesterol 67 H 40-59 mg/dL Vitamin B12 Level 378 211-911 pg/mL Vitamin D 25-Hydroxy 21.5 L 30.0-100 ng/mL Thyroid Stimulating Hormone (TSH) 1.59 0.55-4.78 uIU/mL Assessment NSTEMI, rule out coronary artery disease Hypertensive urgency Rule out structural heart disease Dyslipidemia, newly diagnosed Hypokalemia Prediabetes Transaminitis Obesity Plan/Recommendation We will continue with the following plan/recommendations (Dr. English): * Transthoracic echocardiogram to evaluate cardiac function * Chest pain protocol * HEART score: 6 points * RUDI score: 3 points * Heparin drip per ACS protocol * Single antiplatelet therapy and lipid-lowering agent * Close Cardiac surveillance * Coronary angiogram Case discussed with . The patient's clinical presentation, comorbidities, elevated troponin level, and twelve lead electrocardiogram, we will recommend for the patient to undergo a coronary angiogram with left heart catheterization.The procedure was discussed with the patient in full detail including risks and benefits. Risks include but are not limited to bleeding, contrast-induced nephropathy, coronary dissection, stroke, and even . The patient understands and is agreeable to undergo the procedure. We will schedule the patient at soonest availability. Thank you for allowing us to care for this patient. Please call with any questions or concerns. Critical care time spent: 44 minutes This medical document was created using an electronic medical record system with voice recognition software and computerized dictation system. Although this document has been carefully reviewed, there might still be some phonetic and typographical errors. Occasional wrong-word or ``sound-alike substitutions may have occurred due to the inherent limitations of voice recognition software. These areas are purely typographical due to imperfections of the software programs and do not reflect any compromise in the patient's medical care. Please read the chart carefully and recognize, using context, where these substitutions have occurred. Plan discussed with: Patient NYHA Physical activity limitations: NA Date of Service: Jul 01, 2025 Billing Provider: MEDARDO TOPETE Cardiology Common Codes: [id number] INP/OBS CARE (High) Cardiology Consultation Codes: [id number] CONSULT <45MIN MEDARDO TOPETE Jul 01, 2025 09:51
[2025-07-01] MEDS: ERGOCALCIFEROL 50,000 UNIT(1.25MG) CAP PO SCH (11:23)
[2025-07-01 11:30] LABS: Hepatitis B Surface Antigen Negative (Negative); Hepatitis C Antibody Negative (Negative)
[2025-07-01 11:43] LABS: INR 1.02 (0.9-1.15); Partial Thromboplastin Time 53.8 SEC (24.5-34.5); Prothrombin Time 10.8 sec (9.3-11.8)
[2025-07-01] MEDS: POTASSIUM CHL 20MEQ/100ML 100 ML IV SCH (12:26)
[2025-07-01] MEDS: POTASSIUM CHL 20MEQ/100ML 100 ML IV ONE (16:04)
--- NOTE | 2025-07-01 17:00 | DVHPNRES ---
Progress Note Date Seen: Jul 01, 2025 Resident Creating Document: DIAMANTE ALLEN RESIDENT Medical Necessity Reason Pt with a Central, PICC or Fol: No Subjective Review of Systems Patient is a 59-year-old female with a past medical history of hypertension and herniated disc who presented to [facility] ED with chest pain that began last Sunday. She describes the pain as retrosternal, pressure-like, and squeezing, radiating to her arms, shoulders, and mid back. It is associated with nausea, vomiting, shortness of breath on exertion, and partially relieved by Excedrin, but worsens with movement. On arrival, BP was 186/107 mmHg. EKG showed sinus rhythm with nonspecific ST changes in lateral and anterolateral leads. Initial troponin level of 7973ng/L with up trend and current peak level at 9666ng/L. While in the emergency room, the patient was loaded on IV heparin and given a loading dose of aspirin as well as 0.4 mg nitroglycerin sublingual. The patient reports a relief of symptoms after these medications were given. Chest X-ray was unremarkable. Patient was transferred to the matlab developer for further evaluation and possible intervention. Past medical history: Hypertension, Herniated disc Past Surgical History: x4, Bilateral tubal ligation Family History: Significant cardiac history within her family including her brother with coronary artery disease. Social History: Denies the use of tobacco, alcohol or illicit drugs. Allergies: Coded Allergies: Morphine (Verified Allergy, Intermediate, 07/01/25) Codeine (Verified Allergy, Unknown, 01/16/15) Patient seen and examined at bedside. Patient is alert and oriented to time, place person and responding to all questions. Eyes: No Pain, No Vision change, No Conjunctivae inflammation, No Eyelid inflammation, No Other, No Redness ENT: No Ear pain, No Ear discharge, No Nose pain, No Nose discharge, No Nose congestion, No Mouth pain, No Mouth swelling, No Throat pain, No Throat swelling, No Other Cardiovascular: Chest Pain, No Palpitations, No Orthopnea, No Paroxysmal No Dyspnea, No Edema, No Lt Headedness, No Other Respiratory: SOB with exertion. No Cough, No Dry, No Shortness of breath, No Wheezing, No Hemoptysis, No Pleuritic Pain, No Sputum, No Other Gastrointestinal: Nausea, Vomiting, No Abdominal Pain, No Diarrhea, No Constipation, No Melena, No Hematochezia, No Other Genitourinary: No Dysuria, No Frequency, No Incontinence, No Hematuria, No Retention, No Other Musculoskeletal: No other, No neck pain, No shoulder pain, No arm pain, No back pain, No hand pain, No leg pain, No foot pain Skin: No Rash, No Lesions, No Jaundice, No Bruising, No Other Objective vital signs Vital Sign Date Time Temp Pulse Resp B/P (MAP) Pulse Ox O2 Delivery O2 Flow Rate FiO2 07/01/25 16:00 98.4 64 19 164/93 (116) 98 98.4 07/01/25 08:00 Nasal Cannula* 2 28 medications Current Medications Medications Dose Ordered Sig/Giuseppe Route Start Time Stop Time Status Last Admin Dose Admin Aspirin 81 mg DAILY PO 07/01/25 10:00 Atorvastatin Calcium 80 mg HS PO 07/01/25 22:00 Heparin Sodium/ Dextrose 250 ml @ 9 mls/hr Q24H IV 07/01/25 05:00 07/01/25 05:03 9 MLS/HR Pantoprazole Sodium 40 mg DAILY IV 07/02/25 10:00 Acetaminophen 325 mg Q4HP PRN PO 07/01/25 05:00 Ondansetron HCl 4 mg Q4HP PRN IV 07/01/25 05:00 07/01/25 05:14 4 MG Nitroglycerin 0.4 mg Q5MINP PRN SL 07/01/25 05:00 Ergocalciferol 50,000 unit Q7D PO 07/01/25 10:00 Examination General: The patient alert and oriented in person place and time. Patient following commands HEENT: Normocephalic, atraumatic, normal reactive pupils, EOM intact, pink conjunctiva, pink moist mucous membrane Respiratory/pulmonary: Bilateral chest expansion, pain on palpation of anterior chest wall, pain on palpation of right scapular region, clear lungs bilaterally, vesicular murmurs present in almost all lung blackman, no associated crackles or wheezes. Cardiovascular: Normal RRR, normal S1 and S2, no murmurs Abdomen: Abdomen nondistended, normal bowel sounds, soft, there is no pain to palpation in any of the abdominal quadrants, no palpable masses. Extremities: No deformities, there is no peripheral edema present at the lower extremities, normal pulses Skin: No rashes or pruritus, there is no sacral edema present at this time. Neurological: Intact cranial nerves with no focal neurologic deficits laboratory and microbiology Laboratory Tests 07/01/25 05:26 Test 07/01/25 05:26 Range/Units Serum Glucose 186 H 74-106 mg/dL Labs and/or images reviewed: Labs reviewed by me, Image(s) reviewed by me Problem List/Assessment/Plan Problem List/Assessment/Plan Acute chest pain, likely due to NSTEMI type 1 - EKG: Sinus rhythm with minimal ST depressions in anterolateral leads - CXR: No acute disease. - Troponins: 7973 -> 8026 -> 9573 - Transthoracic echocardiogram to evaluate cardiac function - Heparin drip per ACS protocol - Close Cardiac surveillance - Coronary angiogram - Aspirin 81 mg p.o. daily - Nitroglycerin 0.4 mg SL Q 5 minutes p.r.n. - Acetaminophen 325 mg p.o. q.4 hours PRN - Atorvastatin 80 mg p.o. HS - Beta-blockers are being held due to borderline blood pressure readings - Zofran 4 mg IV q.4 hours PRN - Echocardiogram ordered - Repeat troponin ordered Hypertensive emergency - Blood pressure decreased with administration of nitroglycerin, but pain is persistent with normal BP values - Monitor blood pressure Newly diagnosed Prediabetes, HbA1c 6.0% -I have counseled the patient on the importance of maintaining a balanced diet low in carbohydrates, weight loss, and regular moderate exercise with intolerance Newly diagnosed Hyperlipidemia - Atorvastatin 80 mg HS Transaminitis - Follow up CMP ordered for evaluation of hepatic function - Hepatitis panel has been ordered - Continue Atorvastatin, consider discontinuing if LFTs increase 5 fold Obesity, BMI 30.8 kg/m2 - I have counseled the patient on the importance of maintaining a balanced diet low in carbohydrates, weight loss, and regular moderate exercise with intolerance Vitamin D deficiency - Ergocalciferol 50,000 unit Diet: NPO PUD prophylaxis: protonix 40mg DVT prophylaxis: Levonox 40mg Goals of care: Full code, discussed for >16 minutes on 07/01/25 Plan discussed with patient Plan discussed with Dr. Rome Plan discussed with: Patient My Orders My Orders Orders - DIAMANTE ALLEN Procedure Category Date Status Time Basic Metabolic Panel LAB 07/02/25 Verified 04:00 Date of Service: Jul 01, 2025 Billing Provider: BRENDAN ROME MD Common Visit Codes: [id number] INP/OBS CARE(HIGH) Secondary Visit Codes: 80617-[id number] CARE PLAN 30 MINUTES DIAMANTE ALLEN RESIDENT Jul 01, 2025 17:00 BRENDAN ROME MD Jul 04, 2025 00:21
[2025-07-01 17:44] LABS: INR 1.03 (0.9-1.15); Partial Thromboplastin Time 41.1 SEC (24.5-34.5); Prothrombin Time 10.9 sec (9.3-11.8)
[2025-07-01] MEDS: ANGIOMAX 250 MG VIAL IV ONE (18:16)
[2025-07-01] MEDS: fentaNYL CITRATE 100 MCG/2 ML VL ONE ×2 (18:17→19:04)
[2025-07-01] MEDS: SODIUM CHL 0.9% 50 ML ONE (18:17)
[2025-07-01] MEDS: HEPARIN SODIUM (PORCINE) 5000 UNITS/ML 1ML VIAL ONE ×2 (18:17→19:04)
[2025-07-01] MEDS: VERAPAMIL 2.5MG/ML INJ 2ML VIAL IV ONE ×2 (18:17→19:04)
[2025-07-01] MEDS: MIDAZOLAM HCL 2MG/2ML 2ml VIAL (1mg/ml) ONE ×2 (18:17→19:05)
[2025-07-01] MEDS: LIDOCAINE 2%HCL (LOCAL ANESTH.) INJ 20ML MDV ONE ×2 (18:17→19:05)
[2025-07-01] MEDS: IODIXANOL 320MG/ML 100ML BTL IV ONE (19:01)
--- NOTE | 2025-07-01 19:45 | DVHOP2 ---
Operative Report - 2 Report Details Date: 07/01/25 Preop Diagnosis: CAD Postop Diagnosis: CAD Surgeon: Nahed English MD Anesthesiologist: Conscious sedation Anesthesia: Mac, Local Consent: The patient was informed of the risks and benefits of the procedure. These include but are not limited to complications of anesthesia, postoperative infection, incomplete relief of symptoms, recurrence of symptoms, damage to blood vessels, nerves and tendons, deep venous thrombosis, pulmonary embolism and possible need for repeat surgery in the future. Complications: No complications Findings: Occluded distal circumflex Indications for Surgery: Chest pain Name of Procedure Performed Left heart catheterization bilateral cine coronary angiography. Left vent riculography. PTCA and stenting of distal circumflex Procedure Details Procedure Details: Prior local anesthesia with 2% lidocaine to the right wrist and full informed consent obtained the patient was prepped and draped in usual fashion followed by placement of a sheath into the left radial artery under ultrasound guidance. We placed a multipurpose catheter to evaluate both right and left coronary ostia and ventriculography. We then placed a 3-0 EBU guide to perform angioplasty in the distal circumflex. No complications Hemodynamics aortic blood pressure was 130/70 with an end-diastolic pressure of 10. There was no gradient across the aortic valve on pullback. Coronary anatomy: The RCA is a large vessel it is normal in its proximal mid and distal segments. The PDA and posterolateral branches are normal. Left main is large and normal. Left anterior descending is large and normal. The circumflex is large with two obtuse marginals which are free of significant disease of the distal circumflex distal to the last marginal has 100% occlusion. Ventriculography in the KAY projection shows an EF of 65-70% without wall motion abnormalities. Angioplasty was performed for which a Specter wire was placed distally into the circumflex followed by placement of a 2 0.5 mm by 12 mm balloon inflated at low pressures. We noticed a very small artery. We then placed a 2-0 balloon at low inflation pressures and were able to dilate the segment of the artery distal to the stenosis to 2.0 mm vessel. We then placed a 2.0 x 15 mm marisol Medtronic drug-eluting stent at a proximal 18 atmospheres. There was excellent antegrade flow without thrombus formation and/or dissection however the segment of the artery several mm distal to the stent remained rather small. There were no complications Impression: Normal left ventricular end-diastolic pressure at rest with normal ejection fraction. Distal occlusion of the circumflex coronary artery with successful angioplasty and stenting of the distal circumflex Recommendations medical therapy to continue. Risk factor modification to continue. Dual antiplatelet therapy Condition Good Disposition Still a Patient Date of Service: Jul 01, 2025 Billing Provider: NAHED ENGLISH Sr., MD Cardiology Common Codes: [id number] INP/OBS CARE (High) Cardiology Procedure Codes: 47455 -PTCA W/STENT PLACEMENT, 06572-LPSM HEART CATH W/INTRA INJ NAHED ENGLISH Sr., MD Jul 01, 2025 19:45
[2025-07-01] MEDS: CLOPIDOGREL BISULFATE 75 MG TAB ONE (19:59)
[2025-07-01] MEDS: ACETAMINOPHEN 325 MG TAB PO PRN (20:26)
[2025-07-01] MEDS: ATORVASTATIN 20 MG TAB PO SCH (23:27)
[2025-07-02 01:00] VITALS: BP 144/73; PULSE 70; RESP 18; TEMP 98.4; O2SAT 96
[2025-07-02] MEDS ORDERED: ASPITAB34 PO (03:27)
[2025-07-02] MEDS ORDERED: HYDR25TA5 PO (03:27)
[2025-07-02 05:00] VITALS: BP 131/73; PULSE 70; RESP 19; TEMP 97.9; O2SAT 95
[2025-07-02 05:46] LABS: Anion Gap 11 (5-15); Carbon Dioxide 26 mmol/L (20-31); Chloride 102 mmol/L (98-107); Potassium 3.9 mmol/L (3.5-5.1); Sodium 139 mmol/L (136-145)
[2025-07-02 05:47] LABS: Calcium 9.4 mg/dL (8.7-10.4)
[2025-07-02 05:53] LABS: BUN/Creatinine Ratio 9.9 (10.0-20.0)
[2025-07-02 05:55] LABS: Blood Urea Nitrogen 8 mg/dL (9-23); Glucose 117 mg/dL (74-106)
[2025-07-02 06:28] LABS: Hematocrit 41.7 % (36.0-46.0); Hemoglobin 13.7 g/dL (12.2-16.2); Mean Corpuscular Hemoglobin 29.4 pg (28.0-32.0); Mean Corpuscular Volume 89.3 fL (80.0-100.0); Nucleated Red Blood Cells % 0.1 %
[2025-07-02 08:00] VITALS: PULSE 78
[2025-07-02 09:00] VITALS: BP 130/80; PULSE 82; RESP 17; TEMP 99.1; O2SAT 96
[2025-07-02] MEDS: CLOPIDOGREL BISULFATE 75 MG TAB PO SCH (09:28)
[2025-07-02] MEDS: PANTOPRAZOLE 40 MG/10 ML VIAL INJ IV SCH (09:29)
[2025-07-02] MEDS ORDERED: ACETAMINOPHEN 325 MG TAB PO PRN (11:15)
[2025-07-02] MEDS ORDERED: ACETAMINOPHEN 325 MG TAB PO ONE (11:15)
[2025-07-02] MEDS: IBUPROFEN 400 MG TAB PO ONE (11:27)
[2025-07-02 13:00] VITALS: BP 117/70; PULSE 71; RESP 18; TEMP 98.3; O2SAT 95
--- NOTE | 2025-07-02 13:21 | DVHPN2 ---
Consult Progress Note Date Seen: Jul 02, 2025 Subjective Review of Systems: CVS:Normal, RESPIRATORY:Normal, NEURO:Normal Objective vital signs Vital Sign Date Time Temp Pulse Resp B/P (MAP) Pulse Ox O2 Delivery O2 Flow Rate FiO2 07/02/25 09:00 99.1 82 17 130/80 (97) 96 99.1 07/02/25 08:00 Room Air* 0 21 Total Intake and Output 07/01/25 07/01/25 07/02/25 15:00 23:00 07:00 Intake Total 722 ml 308 ml Balance 722 ml 308 ml medications Current Medications Medications Dose Ordered Sig/Giuseppe Route Start Time Stop Time Status Last Admin Dose Admin Aspirin 81 mg DAILY PO 07/01/25 10:00 07/02/25 09:29 81 MG Atorvastatin Calcium 80 mg HS PO 07/01/25 22:00 07/01/25 23:27 80 MG Pantoprazole Sodium 40 mg DAILY IV 07/02/25 10:00 07/02/25 09:29 40 MG Ondansetron HCl 4 mg Q4HP PRN IV 07/01/25 05:00 07/01/25 20:07 4 MG Nitroglycerin 0.4 mg Q5MINP PRN SL 07/01/25 05:00 Ergocalciferol 50,000 unit Q7D PO 07/01/25 10:00 Clopidogrel Bisulfate 75 mg DAILY PO 07/02/25 10:00 07/02/25 09:28 75 MG Acetaminophen 650 mg Q4HP PRN PO 07/02/25 11:15 Examination: LUNGS:Normal, CVS:Normal, NEURO:Normal laboratory and microbiology Laboratory Tests 07/02/25 04:49 Test 07/02/25 04:49 Range/Units Serum Glucose 117 H 74-106 mg/dL Problem List/Assessment/Plan Problem List/Assessment/Plan NSTEMI s/p PTCA and stenting of the distal LCX x 1 TABITHA Hypertensive urgency Dyslipidemia, newly diagnosed Hypokalemia Prediabetes Transaminitis Obesity Plan/Recommendation (Dr. English) The patient underwent a successful angioplasty and stenting of the distal left circumflex x1 TABITHA. Ventriculography revealed LVEF of 65-70% without wall motion abnormalities. Recommendations are for high-intensity statin (monitor LFTs), dual antiplatelet therapy, and initiation of beta-sunil. Strongly counseled on risk factor modifications including diet, exercise, weight loss, and medical compliance. Follow-up with a primary glaze grinder within 1-2 weeks post discharge. There is no further cardiac workup indicated at this time. Kindly call if in need to re-consult. Thank you for allowing us to participate in this patient's care. This medical document was created using an electronic medical record system with voice recognition software and computerized dictation system. Although this document has been carefully reviewed, there might still be some phonetic and typographical errors. Occasional wrong-word or ``sound-alike substitutions may have occurred due to the inherent limitations of voice recognition software. These areas are purely typographical due to imperfections of the software programs and do not reflect any compromise in the patient's medical care. Please read the chart carefully and recognize, using context, where these substitutions have occurred. Plan discussed with: Patient, Son, Other Date of Service: Jul 02, 2025 Billing Provider: BRAXTON FIELDS Cardiology Common Codes: [id number] HOSP CARE(High BRAXTON FIELDS Jul 02, 2025 13:21
--- NOTE | 2025-07-02 15:30 | DVHPNRES ---
Progress Note Date Seen: Jul 02, 2025 Resident Creating Document: DIAMANTE ALLEN RESIDENT Medical Necessity Reason Pt with a Central, PICC or Fol: No Objective vital signs Vital Sign Date Time Temp Pulse Resp B/P (MAP) Pulse Ox O2 Delivery O2 Flow Rate FiO2 07/02/25 13:00 98.3 71 18 117/70 (86) 95 98.3 07/02/25 08:00 Room Air* 0 21 Total Intake and Output 07/01/25 07/01/25 07/02/25 15:00 23:00 07:00 Intake Total 722 ml 308 ml Balance 722 ml 308 ml medications Current Medications Medications Dose Ordered Sig/Giuseppe Route Start Time Stop Time Status Last Admin Dose Admin Aspirin 81 mg DAILY PO 07/01/25 10:00 07/02/25 09:29 81 MG Atorvastatin Calcium 80 mg HS PO 07/01/25 22:00 07/01/25 23:27 80 MG Pantoprazole Sodium 40 mg DAILY IV 07/02/25 10:00 07/02/25 09:29 40 MG Ondansetron HCl 4 mg Q4HP PRN IV 07/01/25 05:00 07/01/25 20:07 4 MG Nitroglycerin 0.4 mg Q5MINP PRN SL 07/01/25 05:00 Ergocalciferol 50,000 unit Q7D PO 07/01/25 10:00 Clopidogrel Bisulfate 75 mg DAILY PO 07/02/25 10:00 07/02/25 09:28 75 MG Acetaminophen 650 mg Q4HP PRN PO 07/02/25 11:15 Metoprolol Succinate 25 mg DAILY PO 07/03/25 10:00 laboratory and microbiology Laboratory Tests 07/02/25 04:49 Test 07/02/25 04:49 Range/Units Serum Glucose 117 H 74-106 mg/dL Problem List/Assessment/Plan Problem List/Assessment/Plan Acute chest pain, likely due to NSTEMI type 1 - EKG: Sinus rhythm with minimal ST depressions in anterolateral leads - CXR: No acute disease. - Troponins: 7973 -> 8026 -> 9573 - Transthoracic echocardiogram to evaluate cardiac function - Heparin drip per ACS protocol - Close Cardiac surveillance - Coronary angiogram - Aspirin 81 mg p.o. daily - Nitroglycerin 0.4 mg SL Q 5 minutes p.r.n. - Acetaminophen 325 mg p.o. q.4 hours PRN - Atorvastatin 80 mg p.o. HS - Beta-blockers are being held due to borderline blood pressure readings - Zofran 4 mg IV q.4 hours PRN - Echocardiogram ordered - Repeat troponin ordered Hypertensive emergency - Blood pressure decreased with administration of nitroglycerin, but pain is persistent with normal BP values - Monitor blood pressure Newly diagnosed Prediabetes, HbA1c 6.0% -I have counseled the patient on the importance of maintaining a balanced diet low in carbohydrates, weight loss, and regular moderate exercise with intolerance Newly diagnosed Hyperlipidemia - Atorvastatin 80 mg HS Transaminitis - Follow up CMP ordered for evaluation of hepatic function - Hepatitis panel has been ordered - Continue Atorvastatin, consider discontinuing if LFTs increase 5 fold Obesity, BMI 30.8 kg/m2 - I have counseled the patient on the importance of maintaining a balanced diet low in carbohydrates, weight loss, and regular moderate exercise with intolerance Vitamin D deficiency - Ergocalciferol 50,000 unit Diet: NPO PUD prophylaxis: protonix 40mg DVT prophylaxis: Levonox 40mg Goals of care: Full code, discussed for >16 minutes on 07/01/25 Plan discussed with patient Plan discussed with Dr. Rome My Orders My Orders Orders - DIAMANTE ALLEN Procedure Category Date Status Time Discharge DISCHARGE 07/02/25 Transmitted 13:17 Dietary Evaluation Review Comments[facility] Expected Outcomes/Goals: normal blood sugar with dietary management, gradual wt loss DIAMANTE ALLEN Jul 02, 2025 15:30
[2025-07-02] MEDS ORDERED: CLOP75TA70 PO (15:31)
[2025-07-02] MEDS ORDERED: ASPI-325 PO (15:31)
[2025-07-02] MEDS ORDERED: ATOR40TA52 PO (15:31)
[2025-07-02] MEDS ORDERED: LOSA-533 PO (15:31)
[2025-07-02] MEDS ORDERED: METO25TA93 PO (15:31)
[2025-07-02 15:52] VITALS: BP 107/73; PULSE 71; RESP 17; TEMP 98.5; O2SAT 97
--- NOTE | 2025-07-02 18:46 | DVHDSRES ---
Discharge Summary Date of Admission Resident Creating Document: DIAMANTE ALLEN RESIDENT Jul 01, 2025 at 04:52 Date of Discharge: Jul 02, 2025 Admitting Diagnosis chest pain Labs/Diagnostic Data: Laboratory Results Test 07/02/25 04:49 07/01/25 17:03 07/01/25 09:06 07/01/25 08:13 White Blood Count 12.6 10^3/uL (4.4-10.8) Red Blood Count 4.67 10^6/uL (4.0-5.20) Hemoglobin 13.7 g/dL (12.2-16.2) Hematocrit 41.7 % (36.0-46.0) Mean Corpuscular Volume 89.3 fL (80.0-100.0) Mean Corpuscular Hemoglobin 29.4 pg (28.0-32.0) Mean Corpuscular Hemoglobin Concent 33.0 g/dL (32.0-36.0) Red Cell Distribution Width 15.2 % (11.8-14.3) Platelet Count 212 10^3/uL (140-450) Mean Platelet Volume 9.5 fL (6.9-10.8) Neutrophils (%) (Auto) 65.3 % (37.0-80.0) Lymphocytes (%) (Auto) 25.3 % (10.0-50.0) Monocytes (%) (Auto) 8.9 % (0.0-12.0) Eosinophils (%) (Auto) 0.4 % (0.0-7.0) Basophils (%) (Auto) 0.1 % (0.0-2.0) Neutrophils # (Auto) 8.2 10 ^3/uL (1.6-8.6) Lymphocytes # (Auto) 3.2 10 ^3/uL (0.4-5.4) Monocytes # (Auto) 1.1 10 ^3/uL (0-1.3) Eosinophils # (Auto) 0 10 ^3/uL (0-0.8) Basophils # (Auto) 0 10 ^3/uL (0-0.2) Nucleated Red Blood Cells 0.1 % Sodium Level 139 mmol/L (136-145) Potassium Level 3.9 mmol/L (3.5-5.1) Chloride Level 102 mmol/L (98-107) Carbon Dioxide Level 26 mmol/L (20-31) Anion Gap 11 (5-15) Blood Urea Nitrogen 8 mg/dL (9-23) Creatinine 0.81 mg/dL (0.550-1.02) Glomerular Filtration Rate Calc 84 mL/min (>90) BUN/Creatinine Ratio 9.9 (10.0-20.0) Serum Glucose 117 mg/dL (74-106) Calcium Level 9.4 mg/dL (8.7-10.4) Prothrombin Time 10.9 sec (9.3-11.8) Prothrombin Time INR 1.03 (0.9-1.15) Activated Partial Thromboplast Time 41.1 SEC (24.5-34.5) Urine Color Light-yellow (Yellow) Urine Clarity Clear (Clear) Urine pH 6.5 (5.0-9.0) Urine Specific [place] 1.015 (1.001-1.035) Urine Protein 1+ (Negative) Urine Ketones 1+ (Negative) Urine Blood 2+ /uL (Negative) Urine Nitrite Negative (Negative) Urine Bilirubin Negative (Negative) Urine Urobilinogen Normal mg/dL (Negative) Urine Leukocyte Esterase Negative /uL (Negative) Urine RBC 12 /hpf (0 - 4) Urine Microscopic WBC 2 /HPF (0-5) Urine Squamous Epithelial Cells Few /hpf (<5) Urine Bacteria None seen /hpf (None Seen) Urine Mucus Few (None Seen) Urine Glucose Trace mg/dL (Normal) Urine Opiates Screen Neg (NEGATIVE) Urine Fentanyl Screen Neg (NEGATIVE) Urine Barbiturates Screen Neg (NEGATIVE) Urine Phencyclidine Screen Neg (NEGATIVE) Urine Amphetamines Screen Neg (NEGATIVE) Urine Benzodiazepines Screen Neg (NEGATIVE) Urine Cocaine Screen Neg (NEGATIVE) Urine Cannabinoids Screen Neg (NEGATIVE) Lactic Acid Level 2.1 mmol/L (0.4-2.0) Troponin I High Sensitivity 9666 ng/L (</=34) Test 07/01/25 05:26 07/01/25 02:27 Total Bilirubin 1.0 mg/dL (0.2-1.0) Aspartate Amino Transferase (AST) 150 U/L (13-40) Alanine Aminotransferase (ALT) 59 U/L (7-40) Alkaline Phosphatase 107 U/L (46-116) Total Protein 8.0 g/dL (5.7-8.2) Albumin 4.7 g/dL (3.2-4.8) Plasma/Serum Blood Alcohol < 3.0 mg/dL (<10) Hepatitis A IgM Antibody Negative Hepatitis B Surface Antigen Negative (Negative) Hepatitis B Core IgM Antibody Negative (Negative) Hepatitis C Antibody Negative (Negative) Hemoglobin A1c 6.0 % A1C (<5.7) Phosphorus Level 2.9 mg/dL (2.4-5.1) Magnesium Level 1.9 mg/dL (1.6-2.6) Triglycerides Level 102 mg/dL (< 150) Cholesterol Level 256 mg/dL (< 200) LDL Cholesterol 172 mg/dL (< 100) HDL Cholesterol 67 mg/dL (40-59) Vitamin B12 Level 378 pg/mL (211-911) Vitamin D 25-Hydroxy 21.5 ng/mL (30.0-100) Thyroid Stimulating Hormone (TSH) 1.59 uIU/mL (0.55-4.78) Other Laboratory Tests 07/02/25 04:49 Brief Hx & Hospital Course: Patient is a 59-year-old female with a past medical history of hypertension and herniated disc who presented to [facility] ED with chest pain that began last Sunday. She describes the pain as retrosternal, pressure-like, and squeezing, radiating to her arms, shoulders, and mid back. It is associated with nausea, vomiting, shortness of breath on exertion, and partially relieved by Excedrin, but worsens with movement. On arrival, BP was 186/107 mmHg. EKG showed sinus rhythm with nonspecific ST changes in lateral and anterolateral leads. Initial troponin level of 7973ng/L with up trend and current peak level at 9666ng/L. While in the emergency room, the patient was loaded on IV heparin and given a loading dose of aspirin as well as 0.4 mg nitroglycerin sublingual. The patient reports a relief of symptoms after these medications were given. Chest X-ray was unremarkable. 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 The patient underwent left heart catheterization with bilateral cine coronary angiography, left ventriculography, and successful percutaneous transluminal coronary angioplasty (PTCA) with stenting of the distal circumflex artery. The procedure was performed via left radial artery access without complications, revealing normal coronary anatomy except for a 100% occlusion in the distal circumflex, which was successfully treated with balloon angioplasty and drug- eluting stent placement; post-procedure flow was excellent, and left ventricular function was preserved with an ejection fraction of 6570%. On evaluation today, she states she is well, pain is manageable. Her vitals have remained stable for discharge home, follow up visit in discharge clinic. All medications and recommendations were thoroughly explained and the patient states she understands and agrees. Detailed discussion held with patient at bedside were all questions were answered and concerns were addressed. Operations or Procedures PATIENT: FARHAT MANCUSO ACCT: [id number] UNIT: [id number] : 1965 LOC: ER ROOM / BED: / AGE / SEX: 59 / F ADM STATUS: REG ER SERVICE [id number] ORDERING PHYSICIAN: AMY NEWTON MD PROCEDURE(s): CXR1 - CHEST XRAY 1 VIEW REASON: chest pain ORDER NUMBER(s): [id number], ACCESSION NUMBER(s): [id number] CHEST RADIOGRAPH Indication: chest pain Technique: Single frontal view of the chest was obtained COMPARISON: None FINDINGS: Lines and Tubes: None Lungs: Clear Pleura: No effusion. No pneumothorax. Cardiomediastinal contours: Unremarkable Bones: Unremarkable IMPRESSION: 1. No acute disease. Name of Procedure Performed Left heart catheterization bilateral cine coronary angiography. Left ventriculography. PTCA and stenting of distal circumflex Procedure Details Procedure Details: Prior local anesthesia with 2% lidocaine to the right wrist and full informed consent obtained the patient was prepped and draped in usual fashion followed by placement of a sheath into the left radial artery under ultrasound guidance. We placed a multipurpose catheter to evaluate both right and left coronary ostia and ventriculography. We then placed a 3-0 EBU guide to perform angioplasty in the distal circumflex. No complications Hemodynamics aortic blood pressure was 130/70 with an end-diastolic pressure of 10. There was no gradient across the aortic valve on pullback. Coronary anatomy: The RCA is a large vessel it is normal in its proximal mid and distal segments. The PDA and posterolateral branches are normal. Left main is large and normal. Left anterior descending is large and normal. The circumflex is large with two obtuse marginals which are free of significant disease of the distal circumflex distal to the last marginal has 100% occlusion. Ventriculography in the KAY projection shows an EF of 65-70% without wall motion abnormalities. Angioplasty was performed for which a Specter wire was placed distally into the circumflex followed by placement of a 2 0.5 mm by 12 mm balloon inflated at low pressures. We noticed a very small artery. We then placed a 2-0 balloon at low inflation pressures and were able to dilate the segment of the artery distal to the stenosis to 2.0 mm vessel. We then placed a 2.0 x 15 mm marisol Medtronic drug-eluting stent at a proximal 18 atmospheres. There was excellent antegrade flow without thrombus formation and/or dissection however the segment of the artery several mm distal to the stent remained rather small. There were no complications Impression: Normal left ventricular end-diastolic pressure at rest with normal ejection fraction. Distal occlusion of the circumflex coronary artery with successful angioplasty and stenting of the distal circumflex Recommendations medical therapy to continue. Risk factor modification to continue. Dual antiplatelet therapy Condition Good Disposition Still a Patient Date of Service: Jul 01, 2025 Billing Provider: NAHED HERNÁNDEZ Sr., MD Cardiology Common Codes: 30229-ASKVQPB INP/OBS CARE (High) Cardiology Procedure Codes: 32614 -PTCA W/STENT PLACEMENT, 36344-JXES HEART CATH W/INTRA INJ PATIENT: FARHAT MANCUSO ACCT: [id number] : 1965 LOC: ER ROOM / BED: / AGE / SEX: 59 / F ADM STATUS: REG ER SERVICE UNIT: [id number] ORDERING PHYSICIAN: AMY NEWTON MD PROCEDURE(s): EKG - ELECTROCARDIGRAM ORDER NUMBER(s): [id number], ACCESSION NUMBER(s): [id number] [facility] Test Date: 2025-07-01 Test Time: 04:16:42 Pat Name: FARHAT MANCUSO Department: Room: Gender: F [employer]: ELEANOR : 1965 Requested By: AMY NEWTON Order Number: [id number] Reading MD: Measurements Intervals [place] Rate: 64 P: 26 WI: 163 QRS: 8 QRSD: 87 T: 83 QT: 448 QTc: 463 Interpretive Statements Sinus rhythm Please click the below link to view image of tracing. PATIENT: FARHAT MANCUSO ACCT: [id number] : 1965 LOC: ER ROOM / BED: / AGE / SEX: 59 / F ADM STATUS: REG ER SERVICE UNIT: [id number] ORDERING PHYSICIAN: AMY NEWTON MD PROCEDURE(s): EKG - ELECTROCARDIGRAM ORDER NUMBER(s): [id number], ACCESSION NUMBER(s): [id number] [facility] Test Date: 2025-07-01 Test Time: 02:14:39 Pat Name: FARHAT MANCUSO Department: ED Room: Gender: F [employer]: KYLE : 1965 Requested By: AMY NEWTON Order Number: [id number] Sarita MD: Measurements Intervals [place] Rate: 77 P: 23 WI: 165 QRS: 1 QRSD: 95 T: 78 QT: 406 QTc: 460 Interpretive Statements Sinus rhythm Minimal ST depression, anterolateral leads Please click the below link to view image of tracing. DICTATED BY: DICTATED DATE/TIME:07/01/25213 Condition at Discharge: Good Final Diagnosis/Problems List NSTEMI type 1 Acute TN CAD s/p PTCA and stenting Hypertensive emergency Newly diagnosed Prediabetes, HbA1c 6.0% Newly diagnosed Hyperlipidemia Transaminitis Obesity, BMI 30.8 kg/m2 Vitamin D deficiency Discharge Disposition: Home Discharge Instruct/Medications Diet: Cardiac 2g Na,low cholest Activity: No Restrictions, As Tolerated Follow Up/Referral: Follow up with PCP within 1-2 weeks Medications: Aspirin Plavix Lipitor continue home medications Scheduled Aspirin (Aspirin Low Dose), 81 MG PO DAILY Atorvastatin Calcium (Atorvastatin Calcium), 40 MG PO HS Clopidogrel Bisulfate (Clopidogrel), 75 MG PO DAILY Losartan Potassium (Losartan Potassium), 25 MG PO DAILY Metoprolol Succinate (Metoprolol Succinate Er), 25 MG PO DAILY Discontinued Medications Lyljucf-Nuomibpraepkh-Coskpjqg (Excedrin Migraine), 1 TAB PO DAILY, (Reported) Cyclobenzaprine Hcl (Cyclobenzaprine Hcl), 10 MG PO QHSP PRN Hctz (Hydrochlorothiazide), 25 MG PO DAILY, (Reported) Ibuprofen Micronized (Ibuprofen), 800 MG PO TIDWMEALS Methylprednisolone (Medrol Dosepak), 4 MG PO UD Discharge Statement: "Patient was advised to return to the ER or call 911 if any headaches, dizziness, shortness of breath, chest pain, abdominal pain, bleeding, fevers, or worsening of medical condition. Patient was counseled about treatment plan, medications, possible side effects, patientverbalized understanding. All questions were answered to the best of my ability. This discharge took greater then 30 minutes in planning, reviewing documentation, counseling the patient, and discussing with other team members." ASSESSMENT ASSESSMENT Assessment NSTEMI type 1 Acute TN CAD s/p PTCA and stenting Hypertensive emergency Newly diagnosed Prediabetes, HbA1c 6.0% Newly diagnosed Hyperlipidemia Transaminitis Obesity, BMI 30.8 kg/m2 Vitamin D deficiency Date of Service: Jul 02, 2025 Billing Provider: BRENDAN SAINI MD Common Visit Codes: 85156-TKQ/OBS DISCH DAY >30min DIAMANTE ALLEN RESIDENT Jul 02, 2025 18:46 BRENDAN SAINI MD Jul 04, 2025 00:22
[2025-07-03] MEDS ORDERED: METOPROLOL SUCCINATE XL 50 MG TAB PO SCH (10:00)
--- NOTE | 2025-07-03 13:06 | DVHSR ---
APPROVED REPORT EXAM: Two-dimensional and M-mode echocardiogram with Doppler and color Doppler. Blood Pressure: 140/78 mmHg INDICATION NSTEMI RISK FACTORS Height: 5', Weight: 157 DIMENSIONS LVDd4.5 (3.8-5.7cm)LA (2D)4.0 (1.9-4.0cm)Aortic Root3.2 (2.0-3.7cm) LVDs3.2 (2.5-4.0cm)LA (MM) (1.9-4.0cm)Aortic Cusp Exc1.6 (1.5-2.0cm) EF (%) 56.0 (55-70%)Rt. Atrium (1.9-4.0cm)Asc. Aorta cm IVSd1.0 (0.7-1.1cm)RV (D) (1.8-2.4cm) PWd1.0 (0.7-1.1cm) Mitral Valve MitralMitral Stenosis E wave1.00m/sMV Mean GR.mmHg A wave1.00m/sMV Peak GR.mmHg E/A ratio1.02D MVAcm2 Aortic Valve Aortic ValveAortic Stenosis V11.00m/Sharmila Mean GR.4mmHg V21.30m/Sharmila Peak GR.7mmHg LVOT Diameter2.0 (1.8-2.4cm)Doppler AVA2.42cm2 Tricuspid Valve TR Velocity2.20m/s [id number] Conclusion Sinus rhythm. Left atrial enlargement. Concentric LVH. Mild aortic root enlargement. Valves appear to be structurally normal. Left ventricular function is preserved at 60% with normal RV function. Doppler reveals no significant regurgitant jets. No pericardial effusion masses or
== END 2025-07-02 17:09 | disposition home or self-care (01) | DRG 174 ==
LOC: ER 02:10 → OVERFLOW 04:52 → TELE-WESTW 21:30
PROVIDERS: ADMIT Internal Medicine Geriatric Medicine; ATTEND Internal Medicine
PROC: 027034Z Dilation of Coronary Artery, One Artery with Drug-eluting Intraluminal Device, Percutaneous Approach (ICD-10-PCS; principal; 2025-07-01)
PROC: 4A023N7 Measurement of Cardiac Sampling and Pressure, Left Heart, Percutaneous Approach (ICD-10-PCS; 2025-07-01)
PROC: B211YZZ Fluoroscopy of Multiple Coronary Arteries using Other Contrast (ICD-10-PCS; 2025-07-01)
PROC: B215YZZ Fluoroscopy of Left Heart using Other Contrast (ICD-10-PCS; 2025-07-01)
DX: I21.4 Non-ST elevation (NSTEMI) myocardial infarction (principal); I16.1 Hypertensive emergency; Z68.30 Body mass index [BMI] 30.0-30.9, adult; E66.9 Obesity, unspecified; I25.10 Atherosclerotic heart disease of native coronary artery without angina pectoris; R73.03 Prediabetes; I10 Essential (primary) hypertension; E87.6 Hypokalemia; E55.9 Vitamin D deficiency, unspecified; E78.5 Hyperlipidemia, unspecified; Z88.5 Allergy status to narcotic agent; Z79.02 Long term (current) use of antithrombotics/antiplatelets; Z82.49 Family history of ischemic heart disease and other diseases of the circulatory system
CPT/HCPCS: 36415; 71045; 80048; 80053; 80061; 80074; 80307; 80320; 81001; 82306; 82607; 83036; 83605; 83735; 84100; 84443; 84484; 85025; 85610; 85730; 86850; 86900; 86901; 92941; 93005; 93306; 93458; 96361; 96365; 96367; 96375; 99152; 99291; G0378; J2250; J2405; J2470; J3480; Q9967